=== PATIENT | female | born 1950 | race Two or more races ===

== ENCOUNTER 2017-07-09 10:21 | Outpatient (CLI) | payer OTHER | END 2017-07-09 11:28 | disposition home or self-care (01) | LOC: RAD 10:21 | DX: J20.8 Acute bronchitis due to other specified organisms (principal); B34.9 Viral infection, unspecified ==

== ENCOUNTER → 2017-07-09 11:32 | Outpatient (CLI) | payer OTHER | END | disposition home or self-care (01) | LOC: LAB 11:32 | DX: B34.9 Viral infection, unspecified (principal); Z13.820 Encounter for screening for osteoporosis ==

== ENCOUNTER 2017-09-23 08:28 | Outpatient (CLI) | payer OTHER | END 2017-09-23 08:43 | disposition home or self-care (01) | LOC: NUCLEAR 08:28 | DX: I25.10 Atherosclerotic heart disease of native coronary artery without angina pectoris (principal) | CPT/HCPCS: 78452; 93017; A9500 ==

== ENCOUNTER → 2020-01-29 | Outpatient (CLI) | payer OTHER ==
[~2020-01-29] VITALS: Ht 165.1 cm; Wt 64.4 kg
[~2020-01-29] MED LIST: ATIVAN2 M1
== END | disposition home or self-care (01) ==
LOC: OFIC 805 10:30
PROVIDERS: ATTEND Otolaryngology
DX: J39.2 Other diseases of pharynx (principal); H61.21 Impacted cerumen, right ear; L30.8 Other specified dermatitis; R09.89 Other specified symptoms and signs involving the circulatory and respiratory systems

== ENCOUNTER → 2020-03-18 | Outpatient (CLI) | payer OTHER | END | disposition home or self-care (01) | LOC: OFIC 805 02-26 13:00 | PROVIDERS: ATTEND Otolaryngology | DX: R09.89 Other specified symptoms and signs involving the circulatory and respiratory systems (principal); R07.0 Pain in throat ==

== ENCOUNTER → 2022-08-24 07:37 | Outpatient (CLI) | payer OTHER | END | disposition home or self-care (01) | LOC: LAB 07:37 | PROVIDERS: ATTEND Internal Medicine Cardiovascular Disease | DX: C25.9 Malignant neoplasm of pancreas, unspecified (principal); D64.9 Anemia, unspecified; R85.9 Unspecified abnormal finding in specimens from digestive organs and abdominal cavity ==

== ENCOUNTER 2022-08-25 08:17 | Outpatient (CLI) | payer OTHER | END 2022-08-25 08:33 | disposition home or self-care (01) | LOC: TOM 08:17 | PROVIDERS: ATTEND Internal Medicine Cardiovascular Disease | DX: C25.9 Malignant neoplasm of pancreas, unspecified (principal); K85.90 Acute pancreatitis without necrosis or infection, unspecified; D64.9 Anemia, unspecified | CPT/HCPCS: 74160; Q9965 ==

== ENCOUNTER 2023-08-09 07:10 | Outpatient (CLI) | payer OTHER | END 2023-08-09 07:13 | disposition home or self-care (01) | LOC: NUCLEAR 07:10 | PROVIDERS: ATTEND Internal Medicine Cardiovascular Disease | DX: I20.89 Other forms of angina pectoris (principal) | CPT/HCPCS: 78452; 93017; A9500 ==